=== PATIENT | female | born 1970 | race Caucasian/White ===

== ENCOUNTER 2017-07-27 20:56 | Emergency (ER) | payer OTHER ==
[~2017-07-27] VITALS: Ht 177.8 cm; Wt 90.7 kg
[~2017-07-27 20:56] MED LIST: HYZAAR 50-12.51 EACH PO; SYNTHROID100 MCG PO; [UNRECOGNIZED DRUG - OTHER] PO
[2017-07-27] MEDS ORDERED: METOPROLOL ER-1 EAC1 PO (21:12)
== END 2017-07-27 22:41 | disposition home or self-care (01) ==
LOC: ER 20:56
DX: I10 Essential (primary) hypertension (principal)